=== PATIENT | female | born 2000 | race Caucasian/White ===

== ENCOUNTER 2022-12-17 18:57 | Emergency (ER) | payer MEDICAID ==
[2022-12-17] MEDS ORDERED: Cyclobenzaprine 10 MG Tab PO ONE (19:47)
[2022-12-17] MEDS ORDERED: Ketorolac 60 MG/2 ML SDV IM ONE (19:47)
== END 2022-12-17 20:24 | disposition home or self-care (01) ==
LOC: JD.ED 18:57
DX: M54.42 Lumbago with sciatica, left side (principal); M54.41 Lumbago with sciatica, right side; E11.9 Type 2 diabetes mellitus without complications
CPT/HCPCS: 96372; 99283; A9270; J1885; 99282